=== PATIENT | female | born 1985 | race African-American/Black ===

== ENCOUNTER 2016-11-15 09:15 | Emergency (ER) | payer BC ==
[~2016-11-15] VITALS: Ht 162.6 cm; Wt 78.4 kg
[~2016-11-15 09:15] MED LIST: BACTRIM,SEPT1 TABLET PO; CLINDAMYCIN HC300 MG PO; DORYX PO; HYDROCHLOROTH12.5 M3 PO; IRON18 MG PO; MULTIVITAMIN1 EAC2 PO; NOHOMEMEDS; NORCO 7.5/321 TABLET PO; PERCOCET 10/1 TABLET PO; PERCOCET 5/31 TABLET PO; Percocet 5/325,Endoc PO; VIBRAMYCIN100 MG PO
[2016-11-15] MEDS ORDERED: GABAPENTIN300 MG PO (10:25)
[2016-11-15] MEDS ORDERED: HYDROCHLOROTH12.5 M3 PO (10:25)
[2016-11-15 11:35] LABS: HEMATOCRIT 39.8 % (36.0-46.0); MCH 28.2 PG (29.0-34.0); MCHC 31.9 G/DL (30.0-36.0); MCV 88.4 FL (83-99); PLATELET COUNT 205 K/uL (156-360); RBC DIS.WIDTH-CV 12.9 % (11.8-14.6); WHITE BLOOD COUNT 7.2 K/uL (4.1-10.2)
[2016-11-15 11:45] LABS: CHLORIDE 106 mEq/L (99-109); POTASSIUM 4.4 mEq/L (3.7-5.4); SODIUM 141 mEq/L (136-147)
[2016-11-15 11:47] LABS: GLUCOSE 90 mg/dL (70-99)
[2016-11-15 11:48] LABS: ANION GAP 8 MEQ/L (2-14)
[2016-11-15 11:49] LABS: TOTAL BILIRUBIN 0.5 mg/dL (0.0-1.0)
[2016-11-15 11:51] LABS: ALKALINE PHOSPHATASE 68 IU/L (3-129); GFR ESTIMATE (CALCULATED) > 59 mL/min/
[2016-11-15 11:52] LABS: UREA NITROGEN (BUN) 10 mg/dL (9-23)
[2016-11-15 13:35] VITALS: BP 134/87
[2016-11-15] MEDS ORDERED: REGLAN10 MG PO (14:50)
== END 2016-11-15 13:35 | disposition home or self-care (01) ==
LOC: EME 09:15
PROVIDERS: Emergency Medicine
DX: R51 Headache (principal); H53.8 Other visual disturbances; I10 Essential (primary) hypertension; F41.9 Anxiety disorder, unspecified; L73.2 Hidradenitis suppurativa; Z87.891 Personal history of nicotine dependence
CPT/HCPCS: 70450; 80053; 85027; 99281; 99285; J1200; J2765; J7030